=== PATIENT | male | born 1945 | race Caucasian/White ===

== ENCOUNTER → 2016-08-10 | Day surgery (SDC) | payer MEDICARE ==
[~2016-08-10] MED LIST: BUPIVACAINE HCL PF 0.75% 30 ML VIAL ONE; LACTATED RINGER'S 1000 ML INJ 1,000 ML ONE; LIDOCAINE 1.5%/EPINEPHrine 1:200,000 PF SOLN 30 ML AMP ONE; MIDAZOLAM HCL 2 MG/2 ML VIAL ONE; ONDANSETRON HCL 4 MG/2 ML VIAL IV PUSH ONE; PROPOFOL 100 MG/10 ML INJ IV ONE; ceFAZolin 2 GM PREMIX 50 ML ONE; oxyCODONE/ACETAMINOPHEN 5 MG/325 MG TAB ONE
--- NOTE | 2016-08-11 18:56 | MP ---
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 PROCEDURE 1. Right shoulder reconstruction of coracoclavicular ligaments with reduction of the acromioclavicular joint with use of the dog bone implant from [employer] and a posterior tibialis allograft from [employer] with further fixation provided with 5.5 mm swivel locks biocomposite. 2. Right distal clavicle excision. ANESTHESIA Interscalene block and general SURGEON Marco Antonio Garcia MD SAFEMAKER SURGEON Cyndie VASQUEZ ESTIMATED BLOOD LOSS 50 mL DRAINS None. SPECIMEN None COMPLICATIONS None known. 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 Risks, benefits thoroughly discussed and a detailed informed consent was obtained. PROCEDURE IN DETAIL The patient was brought to the operating room, was placed under general anesthetic. He had been given a scalene block in the preop holding area. The certified first assistant, Ponce Morin advanced registered nurse practitioner, specializing in orthopedics. His skill set was medically necessary for the performance of the operation. We placed in a beach-chair position, draped and prepped in usual sterile fashion. IV antibiotics had been given. Time-out completed. A Saber type incision was made about 1.5 to 2 cm medial to the acromioclavicular separation. We went through subcutaneous tissue. Hemostasis was obtained with the use of electrocautery. We took down the fascia on the dorsal surface of the distal clavicle, but we left it attached posteriorly, but we visualized anteriorly and then skeletonized the base of the coracoid process and used a rasp on the anterior aspect and the posterior aspect. We then proceeded with marking our guide pin. We aligned the AC joint anatomically. We used the AC guide for placement of the dog bone and placed our cannulated drill through both the clavicle approximately 30-35 cm medial to the acromioclavicular joint and then passed this through the coracoid process centrally located and then passed our passing sutures and then pulled the inferior aspect of the dog bone into place. We then assessed for superior placement. We then proceeded with making two separate 6 mm drill holes to pass the posterior tibialis allograft which was trimmed back to fit through 6-mm tunnels and then we passed it through the more lateral tunnel which was approximately 15-20 mm from the AC joint and then went underneath the coracoid process and then came out and came through the posterior drill hole which was centered approximately 35-40 mm medial to the AC joint. We pulled that into position. We did complete our cut resecting approximately 10 mm of bone at the distal clavicle. We now reduced with the dog bone and pulled this down into position and completely tightened up both fiber tapes. It looked like an anatomic repair. Then we had extra allograft, so we decided to go ahead and fixate at this level with a 6-5 biocomposite screw into our lateral hole and then on the more medial hole and then we brought the most posterior limb of the allograft that went through the more medial posterior tunnel and brought it over the anterior face of the clavicle and then wrapped around the coracoid process again and then brought this limb that wrapped around crossing back over in more of a [id number] type position and then we used the leftover sutures from the original lateral based 6 mm tunnel which fixated and we went underneath the first one and then fixated to this and then tied this down with multiple sutures, [id number] through the anterior allograft and then the residual limb we made through a more lateral based drill hole and then tied this off. Very solid repair area. We irrigated out with copious amounts of irrigation. We proceeded to close the fascial sling over top of this and then proceeded to close in layers with absorbable suture, subcuticular on the skin, Steri-Strips applied. Sterile dressing applied. The patient was awaken, return to recovery room in stable condition. MD JAVON De Leon/ /3:59 PM /6:41 PM
== END | disposition home or self-care (01) ==
LOC: ESDC 11:47
PROVIDERS: ATTEND Orthopaedic Surgery Sports Medicine
DX: S43.101A Unspecified dislocation of right acromioclavicular joint, initial encounter (principal)
CPT/HCPCS: 00450; 01630; 01991; 23120; 23552; 64417; C1713; J0690; J2250; J2405; J7120